=== PATIENT | male | born 1965 | race Caucasian/White ===

== ENCOUNTER 2020-09-05 09:52 | Emergency (ER) | payer BC, SELFPAY ==
[2020-09-05 09:55] VITALS: BP 145/98; PULSE 84; RESP 18; TEMP 36.9; O2SAT 96; BMI 30.7
--- NOTE | 2020-09-05 10:11 | HMH.EDUTC ---
[facility] [place]ression: Foreign body of right eye Qualifiers: Encounter type: initial encounter Qualified Code(s): T15.91XA - Foreign body on external eye, part unspecified, right eye, initial encounter Disposition: Home, Self-Care Condition on Discharge: Good Instructions: DI for Foreign Body in the Eye Additional Instructions: Make sure to go to Dr Escobar office at 1145 for further evaluation and examination and removal of Foreign body Further instructions per Dr Escobar Return if needed Straight to ER if any life threatening symptoms Referrals: Fili Cerda MD [Primary Care Provider] - As needed Dr Escobar [Other] - 09/05/20 11:45 am Time of Disposition: 10:40 Medical Decision Making - [place] Inquiry Pt receiving controlled substance: No [place] was queried for this patient: No Vital Signs: 09/05/20 09:55 09/05/20 10:46 Temperature 98.5 F 98.5 F Temperature Source Oral Pulse Rate 84 Pulse Rate [Right Brachial] 84 Respiratory Rate 18 18 Blood Pressure 145/98 H Blood Pressure [Right Arm] 145/98 H Blood Pressure Mean [Right Arm] 113 Blood Pressure Source [Right Arm] Automatic Cuff Blood Pressure Position [Right Arm] Sitting 02 Sat by Pulse Oximetry 96 Oxygen Delivery Method Room Air Orders (Tests/Meds): ED MEDICATIONS Discontinued Medications Generic Name Dose Route Start Last Admin Trade Name Adriánq PRN Reason Stop Dose Admin Erythromycin 1 gm 09/05/20 10:38 09/05/20 10:44 Erythromycin Base 1 Gm Oint...G. OP 09/05/20 10:39 1 gm ONCE ONE Administration Eye Irrigation Solution 120 ml 09/05/20 10:38 09/05/20 10:44 Eye Wash Irrigation Soln 118ml Bottle OP 09/05/20 10:39 1 applicatio ONCE ONE Administration Fluorescein Sodium 1 mg 09/05/20 10:38 09/05/20 10:44 Fluorescein Sodium 1mg Strip OP 09/05/20 10:39 1 mg ONCE ONE Administration Tetracaine HCl 0 ml 09/05/20 10:38 09/05/20 10:44 Tetracaine 0.5% Opth Kathryn 15ml OP 09/05/20 10:39 2 drops ONCE ONE Administration - Physician Consults Physician Consulted: Dr Escobar Time: 10:37 Reason -: Opthalmology Eval/Care Comment/Response: Spoke with Dr Escobar after seeing FB in right eye and he advised to have patient be at his office at 1145 for further examination and removal Patient agreed to go to office Medical Decision Narrative: Eye exam completed and patient appears to have FB still in eye, called and spoke with Dr Escobar and he advised to have the patient come to his clinic at 1145am and he would perform exam and removed object from eye in the clinic Patient agreed with treatment plan and will go to the office for further treatment and evaluation [facility] [place] General Stated complaint: eye redness,photosensitive Time Seen by Provider: 09/05/20 10:11 Mode of Arrival: Ambulatory Source of Information: Patient Limitations: No Limitations Description of Symptoms (Recalled from Triage Doc. by RN): PATIENT C/O POSSIBLE FOREIGN BODY IN RIGHT EYE SINCE YESTERDAY. STATES HE WAS GRINDING METAL TO MAKE A KNIFE YESTERDAY AND FELT SOMETHING HIT HIS EYE, BUT THOUGHT IT LEFT AFTER HE BLINKED. 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
[2020-09-05 10:46] VITALS: BP 145/98; PULSE 84; RESP 18; TEMP 36.9; O2SAT 96
== END 2020-09-05 10:48 | disposition home or self-care (01) ==
PROVIDERS: Emergency Provider Nurse Practitioner; PCP Emergency Medicine
DX: T15.91XA Foreign body on external eye, part unspecified, right eye, initial encounter (principal); F17.210 Nicotine dependence, cigarettes, uncomplicated; W45.8XXA Other foreign body or object entering through skin, initial encounter; Y92.018 Other place in single-family (private) house as the place of occurrence of the external cause
CPT/HCPCS: 99202; G0463

== ENCOUNTER 2020-10-28 16:13 | Emergency (ER) | payer BC, SELFPAY ==
[2020-10-28 16:17] VITALS: BP 155/69; PULSE 66; RESP 20; TEMP 36.7; O2SAT 98; BMI 32.4
--- NOTE | 2020-10-28 16:35 | CT_ITS ---
PROCEDURE INFORMATION: Exam: CT Abdomen And Pelvis Without Contrast Exam date and time: 10/28/2020 4:35 PM Age: 55 years old Clinical indication: Abdominal pain; Flank; Right; Prior surgery; Additional info: R/O stone TECHNIQUE: Imaging protocol: Computed tomography of the abdomen and pelvis without contrast. Radiation optimization: All CT scans at this facility use at least one of these dose optimization techniques: automated exposure control; mA and/or kV adjustment per patient size (includes targeted exams where dose is matched to clinical indication); or iterative reconstruction. COMPARISON: No relevant prior studies available. FINDINGS: Lungs: Atelectatic changes noted within the lung bases. Liver: Normal. No mass. Gallbladder and bile ducts: Normal. No calcified stones. No ductal dilation. Pancreas: Normal. No ductal dilation. Spleen: Normal. No splenomegaly. Adrenal glands: Normal. No mass. Kidneys and ureters: 4 mm calcification is present at the right ureterovesicular junction with moderate obstructive uropathy on the right. Several other calcifications are present within the right kidney measuring up to 3 mm. Peripelvic renal cysts are noted on the left without obstructive uropathy. Stomach and bowel: Unremarkable. No obstruction. No mucosal thickening. Appendix: No evidence of appendicitis. Intraperitoneal space: Normal. No significant fluid collection. Vasculature: The vasculature demonstrates diffuse mild atherosclerotic calcification. Lymph nodes: Unremarkable. No enlarged lymph nodes. Urinary bladder: There is mild bladder wall thickening consistent with incomplete distension, chronic outflow obstruction, or cystitis. Reproductive: The prostate demonstrates mild nonspecific enlargement. The seminal vesicles are normal. The prostate gland demonstrates nonspecific parenchymal calcifications. Bones/joints: Postoperative changes noted L5-S1. The lumbar spine demonstrates mild degenerative changes at multiple levels. Soft tissues: Right-sided fat filled inguinal hernia. There is a fat-containing umbilical hernia. IMPRESSION: 1. 4 mm calcification is present at the right ureterovesicular junction with moderate obstructive uropathy on the right. 2. Several other calcifications are present within the right kidney measuring up to 3 mm. 3. Peripelvic renal cysts are noted on the left without obstructive uropathy. 4. There is mild bladder wall thickening consistent with incomplete distension, chronic outflow obstruction, or cystitis. 5. Right-sided fat filled inguinal hernia. COMMENTS: Consistent with the [employer]'s Incidental Findings Committee white paper (J Am Nelia Radiol 2018): Any incidental renal lesion less than 1 cm or classified as too small to characterize, or any incidental cystic renal lesion characterized as simple-appearing, is likely benign. No follow-up imaging is recommended for these lesions per consensus recommendations based on imaging criteria.
[2020-10-28 16:46] LABS: Chloride 106 mmol/L (98-107); Sodium 139 mmol/L (136-145)
[2020-10-28 16:47] LABS: Potassium 3.9 mmoL/L (3.5-5.1)
[2020-10-28 16:48] LABS: Basophils # 0.1 K/mm3 (0-0.2); Basophils % 0.8 % (0.1-2.0); Eosinophils # 0.2 K/mm3 (0.0-0.4); Eosinophils % 1.4 % (0.1-12.0); Hematocrit 39.8 % (42.0-52.0); Hemoglobin 14.3 g/dL (14.1-18.0); Lymphocytes # 4.4 K/mm3 (0.7-4.5); Lymphocytes % 34.5 % (10-50); Mean Corpuscular HGB Conc 35.8 g/dL (31.8-35.4); Mean Corpuscular Hemoglobin 31.5 pg (27.0-31.2); Mean Corpuscular Volume 88.1 fl (80-94); Mean Platelet Volume 8.4 fl (7.4-10.4); Monocytes # 0.5 K/mm3 (0.1-1.0); Monocytes % 3.8 % (1.7-9.3); Neutrophils # 7.5 K/mm3 (1.8-7.8); Neutrophils % 59.6 % (37.0-80.0); Platelet Count 263 K/mm3 (142-424); Red Blood Count 4.52 M/mm3 (4.60-6.20); Red Cell Distribution Width 13.7 % (11.5-17.5); White Blood Count 12.6 K/mm3 (4.8-10.8)
[2020-10-28 16:49] LABS: Alanine Aminotransferase 23 U/L (12-78); Albumin Level 4.6 g/dl (3.5-5.0); Albumin/Globulin Ratio 1.5 (1.1-1.8); Alkaline Phosphatase 73 U/L (38-126); Anion Gap 10.9 mEq/L (5-15); Aspartate Amino Transferase 29 U/L (17-59); Bilirubin,Total 0.8 mg/dl (0.2-1.3); Blood Urea Nitrogen 16 mg/dl (9-20); Carbon Dioxide 26 mmol/L (22.0-30.0); Creatinine Clearance Estimated 134 mL/min (50-200); Estimated Glomerular Filt Rate 88 ml/min (>60); GFR (African American) 106 ML/MIN (>60); Total Protein,Serum 7.6 g/dl (6.3-8.2)
[2020-10-28 16:50] LABS: Calcium 9.3 mg/dl (8.4-10.2); Glucose 139 mg/dl (74-100)
[2020-10-28 16:50] LABS: Microscopic, Urine URINE MICROSCOPIC (MICROSCOPIC)
[2020-10-28 16:51] LABS: Appearance,Urine CLEAR (Clear); Bilirubin,Urine Negative (Negative); Blood, Urine Negative (Negative); Color,Urine YELLOW (Yellow); Glucose,Urine (UA) Negative (Negative); Ketones,Urine Negative (Negative); Leukocyte Esterase,Urine Negative (Negative); Nitrate,Urine Negative (Negative); PH,Urine 5.5 (5.0-8.5); Protein,Urine Negative (Negative); Specific Gravity, Urine >= 1.030 (1.005-1.030); Urobilinogen,Urine 0.2 EU/dl (0.2)
[2020-10-28 17:08] LABS: Bacteria,Urine Trace /lpf
[2020-10-28 17:25] VITALS: BP 140/77; PULSE 63; RESP 16
--- NOTE | 2020-10-28 17:44 | HMH.EDGENADL ---
ED Disposition Clinical Impression: Ureterolithiasis Disposition: Home, Self-Care Condition on Discharge: Good Additional Instructions: Meds as directed. Follow-up with PCP/Dr. Guillermo in the next 2 to 3 days. Return to emergency department for fever, worsening pain, nausea with vomiting. Prescriptions: Ketorolac Tromethamine [Toradol 10mg tablet] 10 mg PO Q6HP PRN #16 tab MDD 40mg/day PRN Reason: Moderate Pain Transmission Status: Pending to [facility] Tamsulosin HCl [Flomax 0.4mg capsule] 0.4 mg PO HS #30 cap Transmission Status: Pending to [facility] Hydrocodone/Acetaminophen [Hydrocodone-Acetamin 5-325 mg] 1 tab PO TID PRN #12 tab PRN Reason: Severe Pain Transmission Status: Sent to [facility] Ondansetron [Zofran 4mg ODT] 4 mg PO TIDP PRN #10 tab PRN Reason: Nausea Transmission Status: Pending to [facility] Referrals: Fili Cerda MD [Primary Care Provider] - 3 days Matthew Guillermo MD [Staff Physician] - (call for appt) Time of Disposition: 17:47 - Critical Care Critical Care Time: No Attestation: On 10/28/20, the high probability of a clinically significant, sudden or life threatening deterioration of the following system(s) required my full and direct attention, intervention and personal management. The time I documented below is in addition to time spent performing reported procedures but includes the following listed in this critical care notation. Medical Decision Making - Medical Records Medical records reviewed: Yes: I reviewed the patient's medical records. - [place] Inquiry Pt receiving controlled substance: No Vital Signs: 10/28/20 16:17 Temperature 98.1 F Temperature Source Oral Pulse Rate [Radial] 66 Respiratory Rate 20 Blood Pressure [Right Arm] 155/69 H Blood Pressure Mean [Right Arm] 97 Blood Pressure Position [Right Arm] Sitting 02 Sat by Pulse Oximetry 98 Oxygen Delivery Method Room Air - Lab Data Lab results reviewed: Yes: I reviewed the patient's lab results. Lab Results 10/28/20 16:30: WBC 12.6 H, RBC 4.52 L, Hgb 14.3, Hct 39.8 L, MCV 88.1, MCH 31.5 H, MCHC 35.8 H, RDW 13.7, Plt Count 263, MPV 8.4, Neut % (Auto) 59.6, Lymph % (Auto) 34.5, [place] % (Auto) 3.8, Eos % (Auto) 1.4, Baso % (Auto) 0.8, Neut # (Auto) 7.5, Lymph # (Auto) 4.4, [place] # (Auto) 0.5, Eos # (Auto) 0.2, Baso # (Auto) 0.1 10/28/20 16:30: Sodium 139, Potassium 3.9, Chloride 106, Carbon Dioxide 26, Anion Gap 10.9, BUN 16, Creatinine 0.90, Estimated Creat Clear 134, Estimated GFR 88, Est GFR ( Amer) 106, Glucose 139 H, Calcium 9.3, Total Bilirubin 0.8, AST 29, ALT 23, Alkaline Phosphatase 73, Total Protein 7.6, Albumin 4.6, Globulin 3.0, Albumin/Globulin Ratio 1.5 10/28/20 16:40: Urine Color Yellow, Urine Appearance Clear, Urine pH 5.5, Ur Specific [place] >= 1.030, Urine Protein Negative, Urine Glucose (UA) Negative, Urine Ketones Negative, Urine Blood Negative, Urine Nitrate Negative, Urine Bilirubin Negative, Urine Urobilinogen 0.2, Ur Leukocyte Esterase Negative, Urine Bacteria Trace Result diagrams: 10/28/20 16:30 10/28/20 16:30 Orders (Tests/Meds): ED MEDICATIONS Generic Name Dose Route Start Last Admin Trade Name Freq PRN Reason Stop Dose Admin Sodium Chloride 1,000 mls @ 999 mls/hr 10/28/20 16:45 10/28/20 16:30 Sod Chlor 0.9% 1000ml Bag IV 10/28/20 17:45 999 mls/hr .Q1H1M HOWARD Administration Discontinued Medications Generic Name Dose Route Start Last Admin Trade Name Freq PRN Reason Stop Dose Admin Ketorolac Tromethamine 30 mg 10/28/20 16:36 10/28/20 16:30 Ketorolac 30mg/Ml Vial IV 10/28/20 16:37 30 mg ONCE ONE Administration Ondansetron HCl 4 mg 10/28/20 16:35 10/28/20 16:30 Ondansetron 4mg/2ml Vial IV 10/28/20 16:36 4 mg ONCE ONE Administration - CT Data CT Scan: Abdomen, Pelvis Time Received: 17:30 Preliminary Findings: Abnormal Findings Narrative: 4mm stone at the right
[2020-10-28 18:01] VITALS: BP 140/79; PULSE 62; RESP 16
[2020-10-28 18:17] VITALS: BP 140/79; PULSE 62; RESP 16; TEMP 36.7; O2SAT 98
== END 2020-10-28 18:17 | disposition home or self-care (01) ==
PROVIDERS: Emergency Provider Family Medicine; PCP Emergency Medicine
DX: N20.1 Calculus of ureter (principal); F17.210 Nicotine dependence, cigarettes, uncomplicated
CPT/HCPCS: 74176; 80053; 81001; 85025; 96365; 96375; 99283; J2405

== ENCOUNTER 2021-07-23 13:27 | Emergency (ER) | payer BC, SELFPAY ==
[2021-07-23 13:35] VITALS: BP 126/83; PULSE 78; RESP 19; TEMP 37.1; O2SAT 98; BMI 32.3
[2021-07-23 13:45] LABS: Apearance,Urine Clear (Clear); Bilirubin,Urine Negative (Negative); Blood, Urine Negative (Negative); Color,Urine Yellow (Yellow); Glucose,Urine (UA) Negative (Negative); Ketones,Urine Negative (Negative); Protein,Urine Negative (Negative); Specific Gravity, Urine 1.015 (1.005-1.030); UTC Leukocyte Esterase,Urine Negative (Negative); UTC Nitrate,Urine Negative (Negative); Urobilinogen,Urine 0.2 EU/dl (0.2)
--- NOTE | 2021-07-23 13:57 | HMH.EDUTC ---
[facility] [place] Impression: Urinary problem in male Disposition: Home, Self-Care Condition on Discharge: Good Instructions: Phenazopyridine, Tamsulosin Additional Instructions: Make sure that you are drinking plenty of fluids Medication as prescribed Follow in the next 2-3 days with Family Doctor or Dr Guillermo Straight to ER if any worsening of symptoms, fever, chills or body aches Prescriptions: Tamsulosin HCl [Flomax 0.4mg capsule] 0.4 mg PO HS #30 cap Transmission Status: Received by [facility] Phenazopyridine HCl [Pyridium 200mg Tablet] 200 pow PO TID #6 tab Transmission Status: Received by [facility] Referrals: Fili Cerda MD [Primary Care Provider] - As needed Matthew Guillermo MD [Staff Physician] - Time of Disposition: 14:11 Medical Decision Making - [place] Inquiry Pt receiving controlled substance: No [place] was queried for this patient: No Vital Signs: 07/23/21 13:35 07/23/21 14:05 Temperature 98.7 F 98.7 F Temperature Source Oral Pulse Rate 78 Pulse Rate [Right Brachial] 78 Respiratory Rate 19 19 Blood Pressure 126/83 Blood Pressure [Right Arm] 126/83 Blood Pressure Mean [Right Arm] 97 Blood Pressure Source [Right Arm] Automatic Cuff Blood Pressure Position [Right Arm] Sitting 02 Sat by Pulse Oximetry 98 Oxygen Delivery Method Room Air - Lab Data Lab results reviewed: Yes: I reviewed the patient's lab results. Lab Results 07/23/21 13:31: Urine Color Yellow, Urine Appearance Clear, Urine pH 6.0, Ur Specific [place] 1.015, Urine Protein Negative, Urine Glucose (UA) Negative, Urine Ketones Negative, Urine Blood Negative, Urine Nitrate Negative, Urine Bilirubin Negative, Urine Urobilinogen 0.2, Ur Leukocyte Esterase Negative Orders (Tests/Meds): ORDERS Category Date Time Status Urine Culture Stat Micro 07/23/21 14:01 Ordered Medical Decision Narrative: Discussed with patient about transfer to the ED for further treatment and evaluation and CT to rule out kidney stones due to history Patient declined transfer States that he is not having any flank pain at this time just some burning and irritation with urination and did not want to go to ED at this time Discussed with patient that could prescribed more Flomax since he is out and pyridium for irritation since patient did take flomax for the last several days and reports feeling of irritation like he had when he passed last kidney stone and for immediate return to the ED if any difficulty or failure to produce urine or worsening of symptoms and patient to follow up with PCP or Dr Guillermo in the next couple of days and patient agreed [facility] [place] - General Stated complaint: painful urination Time Seen by Provider: 07/23/21 13:45 Mode of Arrival: Ambulatory Source of Information: Patient Limitations: No Limitations Description of Symptoms (Recalled from Triage Doc. by RN): PATIENT C/O PRESSURE IN BLADDER, URINARY URGENCY, AND LOWER RIGHT BACK PAIN X 1 WEEK HEENT Symptoms (Recalled from RN notes): No Resp Symptoms (Recalled from RN notes): No Skin Symptoms (Recalled from RN notes): No MS Symptoms (Recalled from RN notes): No Functional Status (Recalled from RN notes): wnl - History of Present Illness Provider Complaint: Patient states that about a week ago he had some lower back pain but he has been laying block and thinks that may have been the cause of his lower back pain States that after that he had a little burning and feeling of urgency and frequency States that he has a history of kidney stones and has been able to pass them with flomax so he had some and took it States that he hasnt passed anything that he is aware of but may have and no longer having low back pain but still having the feeling of urgency and frequency at times with buring States that he is also out of flomax States that he thought he may have a UTI so he came in to get checked Denies fever, chills, or body aches, denies
[2021-07-23 14:05] VITALS: BP 126/83; PULSE 78; RESP 19; TEMP 37.1; O2SAT 98
== END 2021-07-23 14:16 | disposition home or self-care (01) ==
PROVIDERS: Emergency Provider Nurse Practitioner; PCP Emergency Medicine
DX: R30.0 Dysuria (principal); M54.50 Low back pain, unspecified; Z79.899 Other long term (current) drug therapy
CPT/HCPCS: 81003; 87086; 99213; G0463

== ENCOUNTER → 2021-11-15 19:56 | Outpatient (CLI) | payer BC, SELFPAY ==
[2021-11-15 21:01] LABS: Basophils # 0.3 K/mm3 (0-0.2); Basophils % 1.6 % (0.1-2.0); Eosinophils # 0.2 K/mm3 (0.0-0.4); Eosinophils % 1.2 % (0.1-12.0); Hematocrit 43.6 % (42.0-52.0); Hemoglobin 14.5 g/dL (14.1-18.0); Lymphocytes # 1.8 K/mm3 (0.7-4.5); Lymphocytes % 10.6 % (10-50); Mean Corpuscular HGB Conc 33.3 g/dL (31.8-35.4); Mean Corpuscular Hemoglobin 31.3 pg (27.0-31.2); Mean Corpuscular Volume 94.1 fl (80-94); Mean Platelet Volume 8.7 fl (7.4-10.4); Monocytes # 0.9 K/mm3 (0.1-1.0); Monocytes % 5.2 % (1.7-9.3); Neutrophils # 13.7 K/mm3 (1.8-7.8); Neutrophils % 81.5 % (37.0-80.0); Platelet Count 327 K/mm3 (142-424); Red Blood Count 4.63 M/mm3 (4.60-6.20); Red Cell Distribution Width 13.5 % (11.5-17.5); White Blood Count 16.8 K/mm3 (4.8-10.8)
[2021-11-15 21:03] LABS: MANUAL DIFFERENTIAL MANUAL DIFFERENTIAL (MANUAL DIFF)
[2021-11-15 21:34] LABS: Alanine Aminotransferase 25 U/L (12-78); Albumin Level 4.1 g/dl (3.5-5.0); Albumin/Globulin Ratio 1.3 (1.1-1.8); Alkaline Phosphatase 92 U/L (38-126); Amylase 52 U/L (30-110); Aspartate Amino Transferase 29 U/L (17-59); Bilirubin,Total 0.8 mg/dl (0.2-1.3); Blood Urea Nitrogen 13 mg/dl (9-20); Calcium 9.7 mg/dl (8.4-10.2); Carbon Dioxide 24 mmol/L (22.0-30.0); Chloride 101 mmol/L (98-107); Estimated Glomerular Filt Rate 100 ml/min (>60); GFR (African American) 121 ML/MIN (>60); Globulin 3.1 g/dL (1.3-3.2); Glucose 165 mg/dl (74-100); Lipase 63 U/L (23-300); Sodium 138 mmol/L (136-145); Total Protein,Serum 7.2 g/dl (6.3-8.2)
[2021-11-15 21:35] LABS: Lymphocytes % 19 % (10-50); Microcytosis 1+; Monocytes % 9 % (2-9); Neutrophils % 72 % (42-76); Platelet Estimate Normal; Total Cells Counted 100
[2021-11-16 10:11] LABS: Microscopic, Urine URINE MICROSCOPIC (MICROSCOPIC)
[2021-11-16 10:48] LABS: Appearance,Urine SL CLOUDY (Clear); Bilirubin,Urine Negative (Negative); Blood, Urine Negative (Negative); Color,Urine YELLOW (Yellow); Glucose,Urine (UA) Negative (Negative); Ketones,Urine Negative (Negative); Leukocyte Esterase,Urine Negative (Negative); Nitrate,Urine Negative (Negative); Protein,Urine Negative (Negative); Specific Gravity, Urine 1.025 (1.005-1.030); Urobilinogen,Urine 0.2 EU/dl (0.2)
[2021-11-16 11:01] LABS: Bacteria,Urine Trace /lpf; Calcium Oxalate Crystals,Urine 2+ /lpf; Squamous Epithelial Cell,Urine Occasional #/hpf (0-5)
[2021-11-16 11:02] LABS: Mucus,Urine Trace /lpf
== END ==
PROVIDERS: PCP Emergency Medicine; Visit Provider Emergency Medicine
DX: Z20.822 Contact with and (suspected) exposure to COVID-19 (principal); K52.9 Noninfective gastroenteritis and colitis, unspecified
CPT/HCPCS: 36415; 80053; 81001; 82150; 83690; 85007; 85025; 87086; C9803; U0003; U0005

== ENCOUNTER 2022-07-09 18:01 | Emergency (ER) | payer BC, SELFPAY ==
[2022-07-09 18:03] VITALS: BP 129/90; PULSE 99; RESP 16; TEMP 36.8; O2SAT 97; BMI 33.0
[2022-07-09 18:08] VITALS: BP 129/90; PULSE 93; O2SAT 98
[2022-07-09 18:47] VITALS: BP 129/90; PULSE 93; RESP 16; TEMP 36.8; O2SAT 98
--- NOTE | 2022-07-09 18:50 | HMH.EDGENADL ---
Discharge Plan Disposition Patient Disposition: Home, Self-Care Condition: Fair Prescriptions Prescriptions: No Action hydrocodone-acetaminophen 1 EACH tablet 1 tab PO TID PRN (Reason: Severe Pain) Qty: 12 0RF ketorolac 10 MG tablet 10 mg PO Q6HP MDD 40mg/day PRN (Reason: Moderate Pain) Qty: 16 0RF Rx Instructions: Therapy initiated with IV/IM dose tamsulosin 0.4 MG capsule 0.4 mg PO HS Qty: 30 0RF ondansetron 4 MG tablet,disintegrating 4 mg PO TIDP PRN (Reason: Nausea) Qty: 10 0RF multivitamin 1 EACH tablet 1 each PO DAILY phenazopyridine 200 MG tablet 200 pow PO TID Qty: 6 0RF tamsulosin 0.4 MG capsule 0.4 mg PO HS Qty: 30 0RF Referrals Follow up/Referrals: Fili Cerda MD [Primary Care Provider] - See instructions Clinical Impressions Clinical Impression: Abrasion, corneal Instructions Patient Instructions: DI for Corneal Abrasion Discharge ED Provider: Vineet Beatty General Adult HPI General Chief complaint: Eye Problems Stated complaint: AO 07/09 Left eye (stick hit it) Time Seen by Provider: 07/09/22 18:15 Mode of Arrival: Ambulatory Source of Information: Patient Limitations: No Limitations Description of Symptoms (Recalled from ER Triage Doc. by RN): pt was turkey hunting today. pt moved a branch and when he did a second branch hit him in the left eye. pt has blood noted in eye. pt reports no visual changes, no pain at site of injury. History of Present Illness HPI narrative: Patient is a 57-year-old male who presents with concern for left eye injury. He reports that he was hunting earlier today when he moved to branch out of the way but then another branch hit him in the left eye. He noted some bleeding on his eye and his made him come in for evaluation. He says it is not painful. No pain with extraocular movement. Denies any visual changes. Related Data Home Medications Medication Instructions Recorded Confirmed multivitamin 1 each PO DAILY HEALTH MAINTENANCE 02/18/19 02/18/19 Previous Rx's Medication Instructions Recorded hydrocodone 5 mg-acetaminophen 325 1 tab PO TID PRN Severe Pain #12 10/28/20 mg tablet tabs ketorolac 10 mg tablet 10 mg PO Q6HP PRN Moderate Pain 10/28/20 #16 tabs ondansetron 4 mg disintegrating 4 mg PO TIDP PRN Nausea #10 tabs 10/28/20 tablet tamsulosin 0.4 mg capsule 0.4 mg PO HS #30 caps 10/28/20 phenazopyridine 200 mg tablet 200 pow PO TID #6 tabs 07/23/21 tamsulosin 0.4 mg capsule 0.4 mg PO HS #30 caps 07/23/21 Allergies Allergy/AdvReac Type Severity Reaction Status Date / Time No Known Allergies Allergy Verified 07/09/22 18:18 [facility] Disclaimer: The information contained in this section may have been updated after the patient was seen, as this information can be updated by other users. Social History Smoking Status: Never smoker alcohol intake: never substance use type: denies use current occupational status: employed Travel in the last 8 weeks: None household members: family housing: house ROS Obtained: Yes All systems reviewed & no additional complaints except as documented Physical Exam General General appearance: alert and in no apparent distress Head Head exam: atraumatic, normocephalic and normal inspection Eye Eye exam: Present normal appearance, PERRL and other (Left-sided lateral subconjunctival hemorrhage, fluorescein stain revealed small corneal abrasion) ENT ENT exam: Present normal exam, mucous membranes moist and normal external ear exam Neck Neck exam: Present normal inspection and trachea midline Chest Chest inspection: Present normal inspection and symmetric chest wall rise Respiratory Respiratory exam: Present normal lung sounds bilaterally; Absent respiratory distress Cardiovascular Cardiovascular exam: Present regular rate and normal rhythm Abdominal Exam Abdominal exam: Present soft; Absent distention, tenderness or guarding Ext
== END 2022-07-09 18:50 | disposition home or self-care (01) ==
PROVIDERS: Emergency Provider Student in an Organized Health Care Education/Training Program; PCP Emergency Medicine
DX: S05.02XA Injury of conjunctiva and corneal abrasion without foreign body, left eye, initial encounter (principal); W22.8XXA Striking against or struck by other objects, initial encounter
CPT/HCPCS: 99283

== ENCOUNTER 2022-11-01 16:14 | Emergency (ER) | payer BC, SELFPAY ==
[2022-11-01] VITALS (7 sets, daily range): BP systolic 114–175; BP diastolic 71–106; PULSE 74–92; RESP 10–19; TEMP 36.8–36.9; O2SAT 96–99; BMI 34.4
--- NOTE | 2022-11-01 16:14 | ECG_ITS ---
APPROVED REPORT Exam: Resting ECG HR:73 bpm ECG Measurements Heart Rate 73 AXES AK 161 P 62 QRSd 94 QRS 45 QT 370 T 79 QTc 396 Conclusion SINUS RHYTHM MINIMAL ST DEPRESSION [0.025+ mV ST DEPRESSION] BORDERLINE ECG UNCONFIRMED REPORT Electronically signed by : Alexys Burgos MD 11/02/2022 13:52:24
--- NOTE | 2022-11-01 16:22 | XR_ITS ---
PROCEDURE INFORMATION: Exam: XR Chest Exam date and time: 11/01/2022 4:51 PM Age: 57 years old Clinical indication: Angina; Additional info: Chest tightness TECHNIQUE: Imaging protocol: Radiologic exam of the chest. Views: 1 view. COMPARISON: CT ABDOMEN PELVIS WO CON 10/28/2020 5:01 PM FINDINGS: Lungs: Unremarkable. No consolidation. Pleural spaces: Unremarkable. No pleural effusion. No pneumothorax. Heart/Mediastinum: Unremarkable. No cardiomegaly. Bones/joints: Unremarkable. IMPRESSION: No acute findings.
--- NOTE | 2022-11-01 16:23 | HMH.EDGENADL ---
Discharge Plan Disposition Patient Disposition: Home, Self-Care Condition: Good Chief Complaint: Chest Pain Prescriptions Prescriptions: No Action hydrocodone-acetaminophen 1 EACH tablet 1 tab PO TID PRN (Reason: Severe Pain) Qty: 12 0RF ketorolac 10 MG tablet 10 mg PO Q6HP MDD 40mg/day PRN (Reason: Moderate Pain) Qty: 16 0RF Rx Instructions: Therapy initiated with IV/IM dose tamsulosin 0.4 MG capsule 0.4 mg PO HS Qty: 30 0RF ondansetron 4 MG tablet,disintegrating 4 mg PO TIDP PRN (Reason: Nausea) Qty: 10 0RF multivitamin 1 EACH tablet 1 each PO DAILY phenazopyridine 200 MG tablet 200 pow PO TID Qty: 6 0RF tamsulosin 0.4 MG capsule 0.4 mg PO HS Qty: 30 0RF Referrals Follow up/Referrals: Fili Cerda MD [Primary Care Provider] - See instructions Ganga Davis MD [Staff Physician] - See instructions Activity Restrictions/Add. Instructions Additional Instructions/Restrictions: At this time is felt you are safe to be discharged home. If new or worsening symptoms please not hesitate to return to the emergency department. Please call and schedule follow-up with cardiology as you are able. Please follow-up with your family doctor within 1 week. Clinical Impressions Clinical Impression: Chest pain Discharge ED Provider: Romulo Rush General Adult HPI General Chief complaint: Chest Pain Stated complaint: CP Time Seen by Provider: 11/01/22 16:22 History of Present Illness HPI narrative: Patient is a 57-year-old male, previous smoker who presents emergency department for evaluation of chest tightness. Onset was acute, occurring approximately 48 hours ago upon awakening. Intermittently worse with eating. Substernal tightness . Patient denies true pain, cough, fevers, shortness of breath, other acute complaints at this time. Patient has no diagnosed comorbidities for which he takes medications at home for. No allergies. Related Data Home Medications Medication Instructions Recorded Confirmed multivitamin 1 each PO DAILY HEALTH MAINTENANCE 02/18/19 02/18/19 Previous Rx's Medication Instructions Recorded hydrocodone 5 mg-acetaminophen 325 1 tab PO TID PRN Severe Pain #12 10/28/20 mg tablet tabs ketorolac 10 mg tablet 10 mg PO Q6HP PRN Moderate Pain 10/28/20 #16 tabs ondansetron 4 mg disintegrating 4 mg PO TIDP PRN Nausea #10 tabs 10/28/20 tablet tamsulosin 0.4 mg capsule 0.4 mg PO HS #30 caps 10/28/20 phenazopyridine 200 mg tablet 200 pow PO TID #6 tabs 07/23/21 tamsulosin 0.4 mg capsule 0.4 mg PO HS #30 caps 07/23/21 Allergies Allergy/AdvReac Type Severity Reaction Status Date / Time No Known Allergies Allergy Verified 07/09/22 18:18 [facility] Disclaimer: The information contained in this section may have been updated after the patient was seen, as this information can be updated by other users. Social History Smoking Status: Former smoker alcohol intake: never substance use type: denies use current occupational status: employed Travel in the last 8 weeks: None household members: family housing: house ROS Obtained: Yes Systems reviewed as appropriate & no additional complaints except as documented Physical Exam General General appearance: alert and in no apparent distress Head Head exam: atraumatic and normocephalic Eye Eye exam: Present PERRL and EOMI ENT ENT exam: Present mucous membranes moist Neck Neck exam: Present normal inspection Chest Chest inspection: Present normal inspection and symmetric chest wall rise Respiratory Respiratory exam: Present normal lung sounds bilaterally; Absent respiratory distress Cardiovascular Cardiovascular exam: Present regular rate, normal rhythm and other (No pitting edema BLE) Abdominal Exam Abdominal exam: Present soft; Absent tenderness Extremities Exam Extremities exam: Present normal inspection Neurological Exam Neurological exam: Present alert Psychia
[2022-11-01 16:35] LABS: Basophils # 0.1 K/mm3 (0-0.2); Basophils % 0.8 % (0.1-2.0); Eosinophils # 0.2 K/mm3 (0.0-0.4); Eosinophils % 2.1 % (0.1-12.0); Hematocrit 43.8 % (42.0-52.0); Hemoglobin 14.6 g/dL (14.1-18.0); Lymphocytes # 4.4 K/mm3 (0.7-4.5); Lymphocytes % 39.4 % (10-50); Mean Corpuscular HGB Conc 33.4 g/dL (31.8-35.4); Mean Corpuscular Hemoglobin 30.4 pg (27.0-31.2); Mean Platelet Volume 8.6 fl (7.4-10.4); Monocytes # 0.6 K/mm3 (0.1-1.0); Monocytes % 5.1 % (1.7-9.3); Neutrophils # 5.8 K/mm3 (1.8-7.8); Neutrophils % 52.6 % (37.0-80.0); Platelet Count 282 K/mm3 (142-424); Red Blood Count 4.81 M/mm3 (4.60-6.20); Red Cell Distribution Width 13.4 % (11.5-17.5); White Blood Count 11.1 K/mm3 (4.8-10.8)
[2022-11-01 16:52] LABS: Alanine Aminotransferase 35 U/L (12-78); Albumin Level 4.2 g/dl (3.5-5.0); Albumin/Globulin Ratio 1.3 (1.1-1.8); Alkaline Phosphatase 72 U/L (38-126); Anion Gap 12.9 mEq/L (5-15); Aspartate Amino Transferase 34 U/L (17-59); Bilirubin,Total 0.8 mg/dl (0.2-1.3); Blood Urea Nitrogen 18 mg/dl (9-20); Calcium 8.9 mg/dl (8.4-10.2); Carbon Dioxide 27 mmol/L (22.0-30.0); Chloride 106 mmol/L (98-107); Creatinine Clearance Estimated 125 mL/min (50-200); Estimated Glomerular Filt Rate 77 ml/min (>60); GFR (African American) 93 ML/MIN (>60); Globulin 3.2 g/dL (1.3-3.2); Glucose 113 mg/dl (74-100); Potassium 3.9 mmoL/L (3.5-5.1); Sodium 142 mmol/L (136-145); Total Protein,Serum 7.4 g/dl (6.3-8.2)
[2022-11-01 17:09] LABS: Troponin I < 0.01 ng/ml (0.00-0.034)
[2022-11-01 18:57] LABS: Troponin I < 0.01 ng/ml (0.00-0.034)
== END 2022-11-01 19:18 | disposition home or self-care (01) ==
PROVIDERS: Emergency Provider Emergency Medicine; PCP Emergency Medicine
DX: R07.9 Chest pain, unspecified (principal); Z87.891 Personal history of nicotine dependence
CPT/HCPCS: 71045; 80053; 84484; 85025; 93005; 99285

== ENCOUNTER 2023-03-20 14:40 | Emergency (ER) | payer BC, SELFPAY ==
--- NOTE | 2023-03-20 15:54 | EXP.UTC ---
Discharge Plan Disposition Patient Disposition: Home, Self-Care Condition: Good Prescriptions Prescriptions: New benzonatate [benzonatate] 100 mg capsule 100 mg PO TIDP PRN (Reason: Cough) Qty: 30 0RF ondansetron 4 mg Tablet,Disintegrating 4 mg PO Q8H PRN (Reason: Nausea) Qty: 12 0RF No Action hydrocodone-acetaminophen 1 EACH tablet 1 tab PO TID PRN (Reason: Severe Pain) Qty: 12 0RF ketorolac 10 MG tablet 10 mg PO Q6HP MDD 40mg/day PRN (Reason: Moderate Pain) Qty: 16 0RF Rx Instructions: Therapy initiated with IV/IM dose tamsulosin 0.4 MG capsule 0.4 mg PO HS Qty: 30 0RF ondansetron 4 MG tablet,disintegrating 4 mg PO TIDP PRN (Reason: Nausea) Qty: 10 0RF multivitamin 1 EACH tablet 1 each PO DAILY phenazopyridine 200 MG tablet 200 pow PO TID Qty: 6 0RF tamsulosin 0.4 MG capsule 0.4 mg PO HS Qty: 30 0RF Referrals Follow up/Referrals: Fili Cerda MD [Primary Care Provider] - See instructions Activity Restrictions/Add. Instructions Additional Instructions/Restrictions: Drink plenty of fluids. Take tylenol or ibuprofen for pain or fever. Take the medications as directed. Follow up with your regular doctor. GO TO THE ER FOR ANY WORSENING SYMPTOMS Clinical Impressions Clinical Impression: Acute viral syndrome, Exposure to 2019 novel coronavirus Instructions Patient Instructions: Coronavirus Disease 2019, Preventing the Spread of Coronavirus Discharge Instructions Discharge ED Provider: Caleb Salmeron [facility] General Stated complaint: covid exposure, h/a, chills, cough, lung pain Time Seen by Provider: 03/20/23 15:54 History of Present Illness Provider Complaint: He states that for the past 2 days he has had chills, malaise, dry cough, and body aches. He has been exposed to covid-19. Related Data Home Medications Medication Instructions Recorded Confirmed multivitamin 1 each PO DAILY HEALTH MAINTENANCE 02/18/19 02/18/19 Previous Rx's Medication Instructions Recorded hydrocodone 5 mg-acetaminophen 325 1 tab PO TID PRN Severe Pain #12 08/ mg tablet tabs ketorolac 10 mg tablet 10 mg PO Q6HP PRN Moderate Pain 10/28/20 #16 tabs ondansetron 4 mg disintegrating 4 mg PO TIDP PRN Nausea #10 tabs 10/28/20 tablet tamsulosin 0.4 mg capsule 0.4 mg PO HS #30 caps 10/28/20 phenazopyridine 200 mg tablet 200 pow PO TID #6 tabs 07/23/21 tamsulosin 0.4 mg capsule 0.4 mg PO HS #30 caps 07/23/21 benzonatate 100 mg capsule 100 mg PO TIDP PRN Cough #30 caps 03/20/23 ondansetron 4 mg disintegrating 4 mg PO Q8H PRN Nausea #12 tabs 03/20/23 tablet Allergies Allergy/AdvReac Type Severity Reaction Status Date / Time No Known Allergies Allergy Verified 07/09/22 18:18 [facility] Disclaimer: The information contained in this section may have been updated after the patient was seen, as this information can be updated by other users. Social History Smoking Status: Former smoker tobacco type: cigarettes packs per day: 1 alcohol intake: never substance use type: denies use current occupational status: employed Travel in the last 8 weeks: None household members: family housing: house ROS Obtained: Yes All systems reviewed & no additional complaints except as documented Constitutional Constitutional: Reports chills and Reports fever(s) Eyes Eyes: Denies eye discharge ENT Ears, Nose, Mouth, and Throat: Reports as per HPI Cardiovascular Cardiovascular: Denies chest pain Respiratory Respiratory: Denies chest congestion and Reports cough Gastrointestinal Gastrointestingal: Reports nausea; Denies abdominal pain, constipation, cramping, diarrhea or vomiting Musculoskeletal Musculoskeletal: Denies arthralgias Integumentary/Breasts Skin/Breast: Denies rash Neurologic Neurologic: Denies paresthesias Physical Exam General General appearance: alert and in no apparent distress Head Head exam: atraumatic, normocephalic and normal inspection Eye Eye exam: Present normal appearance, PERRL and EOMI ENT ENT exam: Present normal exam, normal oropharynx, mucous membranes moist, TM's normal bilaterally and normal external ear exam Neck Neck exam: Present normal inspection, full ROM and trachea midline; Absent meningismus or lymphadenopathy Chest Chest inspection: Present normal inspection and symmetric chest wall rise; Absent tenderness Respiratory Respiratory exam: Present normal lung sounds bilaterally; Absent respiratory distress Cardiovascular Cardiovascular exam: Present regular rate and normal rhythm; Absent JVD Abdominal Exam Abdominal exam: Present soft and normal bowel sounds; Absent distention, tenderness or guarding Extremities Exam Extremities exam: Present normal inspection, full ROM and normal capillary refill; Absent calf tenderness Back Exam Back exam: Present normal inspection; Absent tenderness Neurological Exam Neurological exam: Present alert and oriented X3 Psychiatric Psychiatric exam: Present normal affect and normal mood Skin Skin exam: Present warm, dry, intact and normal color Lymphatic Lymphatic Findings: no adenopathy Medical Decision Making Medical Records Medical records reviewed: No I reviewed the patient's medical records. [place] Inquiry Pt receiving controlled substance: No Lab Data Lab results reviewed: Yes I reviewed the patient's lab results. Orders (Tests/Meds): ORDERS Category Date Time Status Covid-19 Nasal PCR ([facility]) Routine Lab 03/20/23 15:54 Ordered
[2023-03-20 16:07] VITALS: BP 145/97; PULSE 106; RESP 18; TEMP 37.2; O2SAT 97; BMI 34.4
[2023-03-20 16:20] VITALS: BP 145/97; PULSE 106; RESP 18; TEMP 37.2; O2SAT 97
== END 2023-03-20 16:21 | disposition home or self-care (01) ==
PROVIDERS: Emergency Provider Nurse Practitioner Family; PCP Emergency Medicine
DX: U07.1 COVID-19 (principal); R51.9 Headache, unspecified; R07.1 Chest pain on breathing; R50.9 Fever, unspecified; R05.9 Cough, unspecified; R53.81 Other malaise; M79.18 Myalgia, other site; Z87.891 Personal history of nicotine dependence
CPT/HCPCS: 87635; 99212; 99214; G0463

== ENCOUNTER 2023-05-24 07:33 | Outpatient (CLI) | payer BC, SELFPAY ==
--- NOTE | 2023-05-24 07:40 | US_ITS ---
FINAL REPORT TECHNIQUE: Sonographic images of the right upper quadrant were obtained. CLINICAL HISTORY: ADENOMATOUS POLYP OF COLON,STEATOHEPATITIS NON ALCOHOLIC COMPARISON: None FINDINGS: PANCREAS: Unremarkable. LIVER: There is mild increased echogenicity in the liver consistent with fatty infiltration.. No focal hepatic lesion. No intrahepatic biliary ductal dilatation. GALLBLADDER: The gallbladder is surgically absent.. . COMMON DUCT: Not well-visualized, therefore not measured. However no biliary ductal dilatation was seen. RIGHT KIDNEY: The right kidney measures 11 cm. There is no hydronephrosis, mass, or stone. FREE FLUID: None. IMPRESSION: Gallbladder surgically absent without evidence of biliary ductal dilatation. Fatty infiltration of the liver. Reviewed, Interpreted and Dictated by Cydney Moscoso MD Transcribed by Patricia Sweeney Authenticated and [facility]
[2023-05-24 08:12] LABS: Basophils # 0.1 K/mm3 (0-0.2); Basophils % 0.9 % (0.1-2.0); Eosinophils # 0.2 K/mm3 (0.0-0.4); Eosinophils % 2.2 % (0.1-12.0); Hematocrit 44.5 % (42.0-52.0); Lymphocytes # 4.3 K/mm3 (0.7-4.5); Lymphocytes % 41.4 % (10-50); Mean Corpuscular HGB Conc 33.8 g/dL (31.8-35.4); Mean Corpuscular Hemoglobin 31.6 pg (27.0-31.2); Mean Corpuscular Volume 93.7 fl (80-94); Mean Platelet Volume 8.1 fl (7.4-10.4); Monocytes # 0.4 K/mm3 (0.1-1.0); Monocytes % 3.8 % (1.7-9.3); Neutrophils # 5.3 K/mm3 (1.8-7.8); Neutrophils % 51.7 % (37.0-80.0); Platelet Count 294 K/mm3 (142-424); Red Blood Count 4.75 M/mm3 (4.60-6.20); Red Cell Distribution Width 13.7 % (11.5-17.5); White Blood Count 10.3 K/mm3 (4.8-10.8)
[2023-05-24 08:13] LABS: Alanine Aminotransferase 26 U/L (12-78); Albumin Level 4.3 g/dl (3.5-5.0); Albumin/Globulin Ratio 1.3 (1.1-1.8); Alkaline Phosphatase 76 U/L (38-126); Anion Gap 12.3 mEq/L (5-15); Aspartate Amino Transferase 32 U/L (17-59); Bilirubin,Total 0.9 mg/dl (0.2-1.3); Blood Urea Nitrogen 13 mg/dl (9-20); Calcium 9.5 mg/dl (8.4-10.2); Carbon Dioxide 26 mmol/L (22.0-30.0); Chloride 107 mmol/L (98-107); Estimated Glomerular Filt Rate 87 ml/min (>60); GFR (African American) 105 ML/MIN (>60); Globulin 3.2 g/dL (1.3-3.2); Glucose 128 mg/dl (74-100); Potassium 4.3 mmoL/L (3.5-5.1); Sodium 141 mmol/L (136-145); Total Protein,Serum 7.5 g/dl (6.3-8.2)
[2023-05-29 10:09] LABS: Fibrosis Score 0.11; Fibrosis Stage F0- NO FIBROSIS; Steatosis Grade S2-S3; Steatosis Score 0.76
[2023-05-29 10:10] LABS: Alpha 2-Macroglobulins, Qn 108; Apolipoprotein A-1 128; Haptoglobin 148; NASH Grade N1; NASH Score 0.36
[2023-05-29 10:11] LABS: ALT (SGPT) P5P 19; AST (SGOT) P5P 16; Bilirubin, Total 0.5; GGT 31
[2023-05-29 10:12] LABS: Cholesterol, Total 205; Glucose 127; Triglycerides 288
== END 2023-05-24 23:59 ==
LOC: RAD 07:34
PROVIDERS: PCP Emergency Medicine; Visit Provider Nurse Practitioner Family
DX: K75.81 Nonalcoholic steatohepatitis (NASH) (principal); D12.6 Benign neoplasm of colon, unspecified
CPT/HCPCS: 36415; 76705; 80053; 85025

== ENCOUNTER 2024-10-24 12:55 | Outpatient (CLI) | payer BC, SELFPAY ==
--- OUTSIDE RECORDS SUMMARY | 2024-10-24 13:00 | XMS_ITS | Clinical Summary ---
Author Organization [facility] Address [address] [place] [address] Care Team Providers Care Secondary Special Education Teacher Name Role Phone Fili Cerda MD Primary Care Provider [phone] Medications No known medications Active Problems Problem Noted Date Diagnosed Date Former smoker 11/09/2022 Chronic chest pain with low to moderate risk for CAD 11/09/2022 Family history of coronary artery disease 2022 Family History Medical History Relation Name Comments Anuerysm Father Alzheimer's disease Mother Heart attack Paternal Grandfather Other Paternal Uncle 3 stents Relation Name Status Comments Brother Alive Father Mother Paternal Grandfather Paternal Uncle Alive Social History Tobacco Use Types Packs/Day Years Used Date Smoking Tobacco: Former Cigarettes Q uit: 12/25/2021 Smokeless Tobacco: Never Tobacco Cessation:Counseling Given: Not Answered Alcohol Use Standard Drinks/Week Comments Yes 2 (1 standard drink = 0.6 oz pur e alcohol) Abuse Screen Answer Date Recorded Unsafe at Home or Work/School Not on file Feels Threatened by Someone? Not on file 11/2022 Does Anyone Keep You from Co ntacting Others or Doint Things Outside the Home? Not on file 01/01/2023 Physical Sign of Abuse Present Not on file 1 Housing Stability Answer Date Recorded Current Living Arrangements Not on file 11/2022 Potentially Unsafe Housing Conditions Not on alice e 01/01/2023 Family and Community Support Answer Lokesh e Recorded Help with Day-to-Day Activities Not on file 01/01/2023 Lonely or Isolated Not on file 01/01/2023 Employment Answer Date Recorded Do you want help finding or keeping work or a jovana b? Not on file 01/01/2023 Disabilities Answer Date Recorded Concentrating, Remembering, or Making Decisions Difficulty Not on file 01/01/2023 Doing Errands Independently Difficulty Not on fi le 01/01/2023 Education Answer Date Recorded Help with school or training? Not on file Preferred Language Not on file 01/01/2023 Sex and Gender Information Value Date Recorded Sex Assigned at Not on file Legal Sex Male 11:10 AM EDT Gender Identity Not on file Sexual Orientation Not on file Last Filed Vital Signs Vital Sign Reading Time Taken Comments Blood Pressure 124/84 11/09/2022 1:28 PM EDT Pulse 81 11/09/2022 1:28 PM EDT Temperature - - Respiratory Rate - - Oxygen Saturation 96% 11/09/2022 1:28 PM EDT Inhaled Oxygen Concentration - - Weight 112 kg (246 lb) 11/09/2022 1:28 PM EDT Height 177.8 cm (5' 10 ) 11/09/2022 1:28 PM EDT Body Mass Index 35.3 11/09/2022 1:28 PM EDT Plan of Treatment Health Maintenance Due Date Last Done Comments COLOGUARD 2010 COLON CANCER SCREENING 5 YEA R SIGMOIDOSCOPY 2010 COLONOSCOPY 2010 COLORECTAL CANCER SCREENING 2010 CT COLONOGRAPHY 2010 FECAL OCCULT BLOOD TEST 2010 FIT Testing (1 year) 2010 Pneumococcal Vaccine 50+ (1 of 1 - PCV) 2015 ZOSTER VACCINE (1 of 2) 2015 TDAP/TD VACCINES (1 - Tdap) 02/19/2019 02/18/2019 ANNUAL PHYSICAL 11/03/2022 HEPATITIS C SCREENING 11/03/2022 COVID-19 Vaccine (1 - season) 2023 INFLUENZA VACCINE 12/24/2024 12/19/2016, 01/03/2016 Insurance [facility] PPO Care Teams Secondary Special Education Teacher Relationship Specialty Start Date End Date Fili Cerda MD [address] [place] [address] PCP - General 02/01/15
--- OUTSIDE RECORDS SUMMARY | 2024-10-24 13:00 | XMS_ITS | Clinical Summary ---
Author Organization [facility] Address [address] [place] [address] Care Team Providers Care Truck Body Builder Apprentice Name Role Phone Fili Cerda MD Primary Care Provider [phone] Family History Medical History Relation Name Comments Conversions - Other Mother Back pro blem Relation Name Status Comments Mother Social History Tobacco Use Types Packs/Day Years Used Date Smoking Tobacco: Former Sex and Gender Information Value Date Recorded Sex Assigned at Not on file Legal Sex Male 7:16 PM EDT Gender Identity Not on file Sexual Orientation Not on file Last Filed Vital Signs Vital Sign Reading Time Taken Comments Blood Pressure - - Pulse - - Temperature - - Respiratory Rate - - Oxygen Saturation - - Inhaled Oxygen Concentration - - Weight 107 kg (235 lb 0.2 oz) 07/01/2015 2:01 PM EDT Height 175.3 cm (5' 9 ) 07/01/2015 2:01 PM EDT Body Mass Index 34.71 07/01/2015 2:01 PM EDT Plan of Treatment Health Maintenance Due Date Last Done Comments [facility]-Depression Screening 1965 [facility]-/Child/Adol SDOH Screenings 1965 [facility]- SDOH Screenings 1983 [facility]-Adult SDOH Screenings 1983 [facility]-DTaP,Tdap,and Td Vaccine s (1 - Tdap) 02/05/1984 [facility]-Hepatitis B Vaccines (1 of 3 - 19+ 3-dose series) 02/05/1984 CT Colonography 2010 Colonoscopy 2010 FIT-DNA 2010 FIT 2010 FOBT 2010 Sigmoidoscopy 2010 [facility]-Colorectal Cancer Screening 2010 [facility]-Pneumococcal Vaccine: 50 + Years (1 of 1 - PCV) 2015 [facility]-Zoster Vaccines (1 of 2) 2015 [id number] Vaccine (1 - 20 24-25 season) 2023 [facility]-Influenza Vaccine (#1) 2024 HPV Vaccines Aged Out No longer eligi ble based on patient's age to complete this topic [facility]-HIB Vaccines Aged Out No longer e ligible based on patient's age to complete this topic [facility]-Hepatitis A Vaccines Aged Out No longer eligible based on patient's age to complete this topic [facility]-IPV Vaccines Aged Out No longer e ligible based on patient's age to complete this topic [facility]-Rotavirus Vaccines Aged Out No lo nger eligible based on patient's age to complete this topic Care Teams Truck Body Builder Apprentice Relationship Specialty Start Date End Date Fili Cerda MD [address] [place] [address] PCP - General 08/06/20
--- OUTSIDE RECORDS SUMMARY | 2024-10-24 13:00 | XMS_ITS | Clinical Summary ---
Author Organization [facility] Address [address] [place] [address] Phone [email or web address] Care Team Providers Care Bit Sander Name Role Phone Fili Cerda MD Primary Care Provider [phone] Allergies No known active allergies Medications No known medications Active Problems Problem Noted Date Diagnosed Date Tobacco use disorder 02/10/2010 Overview (08/22/2017): Resolved Problems Problem Noted Date Diagnosed Date Resolved Date Acute sinusitis 03/08/2011 05/13/2019 Overview (08/22/2017): Acute conjunctivitis 11/15/2009 020 Overview (08/22/2017): Sprain of back 01/07/2009 05/13/2019 Overview (08/22/2017): Routine general medical exam ination at a health care facility 01/28/2008 05/13/2019 Overview (08/22/2017): Other examination of ears and hearing 03/11/2007 05/13/2019 Overview (08/22/2017): Social History Tobacco Use Types Packs/Day Years Used Date Smoking Tobacco: Never Smokeless Tobacco: Never Alcohol Use Standard Drinks/Week Comments Never 0 (1 standard drink = 0.6 oz pur e alcohol) Intimate Partner Violence Answer Date R ecorded Insults You Not on file 07/07/2020 Threatens You Not on file 07/07/2020 Screams at You Not on file 07/07/2020 Physically Hurt Not on file 07/07/2020 Intimate Partner Violence Score Not on file 07/07/2020 Depression Answer Date Recorded PHQ-9 Total Score 0 06/10/2019 Stress Answer Date Recorded Stress in your Life Not on file 01/28/2024 Dealing with Stress 3 01/28/2024 Sex and Gender Information Value Date Recorded Sex Assigned at Not on file Legal Sex Male 9:26 AM CDT Gender Identity Not on file Sexual Orientation Not on file Last Filed Vital Signs Vital Sign Reading Time Taken Comments Blood Pressure 126/82 06/10/2019 7:34 AM EDT Pulse 72 06/10/2019 7:34 AM EDT Temperature 36.9 C (98.5 F) 06/10/2019 7:34 AM EDT Respiratory Rate 14 06/03/2019 9:53 AM EDT Oxygen Saturation 99% 06/10/2019 7:34 AM EDT Inhaled Oxygen Concentration - - Weight 102 kg (225 lb) 06/03/2019 9:53 AM EDT Height 177.8 cm (5' 10 ) 06/03/2019 9:53 AM EDT Body Mass Index 32.28 06/03/2019 9:53 AM EDT Plan of Treatment Health Maintenance Due Date Last Done Comments Dental Cleaning/Exam 1965 HIV Screening 1965 Hepatitis C Screening 1965 Hep B Infection Screening - Triple Screen 1983 Hepatitis B Immunization (1 of 3 - 19+ 3-dose series) 02/05/1984 Tetanus Diphtheria and Pertu ssis Immunization (1 - Tdap) 02/05/1984 Colorectal Cancer Screening 1995 Zoster Immunization (1 of 2) 2015 Annual Preventive Exam 05/13/2020 05/13/2019 Covid-19 Immunization (1 - 2 25 season) 2023 Influenza Immunization (#1) 2024 HIB Immunization Aged Out No longer e ligible based on patient's age to complete this topic HPV Immunization Aged Out No longer e ligible based on patient's age to complete this topic Hepatitis A Immunization Aged Out No longer eligible based on patient's age to complete this topic Pneumococcal: Ped (0 to 5 Yr s) and At-Risk Member (6 to 64 Yrs) Aged Out No longer e ligible based on patient's age to complete this topic Polio Immunization Aged Out No longer eligible based on patient's age to complete this topic Insurance Care Teams Bit Sander Relationship Specialty Start Date End Date Fili Cerda MD [address] [place] [address] PCP - General Family Medicine 06/03/19
[2024-10-24 13:10] LABS: Microscopic, Urine URINE MICROSCOPIC (MICROSCOPIC)
[2024-10-24 13:24] LABS: Hematocrit 41.1 % (42.0-52.0); Hemoglobin 13.8 g/dL (14.1-18.0); Immature Granulocytes % 0.4 %; Mean Corpuscular HGB Conc 33.6 g/dL (31.8-35.4); Mean Corpuscular Hemoglobin 29.7 pg (27.0-31.2); Mean Corpuscular Volume 88.6 fl (80-94); Nucleated Red Blood Cells % 0 %; Platelet Count 246 K/mm3 (142-424); Red Blood Count 4.64 M/mm3 (4.60-6.20); Red Cell Distribution Width-SD 41.1 fL; White Blood Count 9.3 K/mm3 (4.8-10.8)
[2024-10-24 13:29] LABS: Bilirubin,Urine Negative (Negative); Color,Urine YELLOW (Yellow); Glucose,Urine (UA) Negative (Negative); Ketones,Urine Negative (Negative); Leukocyte Esterase,Urine Negative (Negative); PH,Urine 6.0 (5.0-8.5); Protein,Urine Negative (Negative); Specific Gravity, Urine 1.025 (1.005-1.030); Urobilinogen,Urine 0.2 EU/dl (0.2)
[2024-10-24 13:39] LABS: Bacteria,Urine Trace /lpf; Mucus,Urine Trace /lpf; Squamous Epithelial Cell,Urine Occasional #/hpf (0-5); WBC,Urine Occasional #/hpf (0-3)
[2024-10-24 14:09] LABS: Free T4 (Free Thyroxine) 1.04 ng/dl (0.78-2.19)
[2024-10-24 15:04] LABS: Alanine Aminotransferase 24 U/L (12-78); Albumin Level 4.3 g/dl (3.5-5.0); Albumin/Globulin Ratio 1.7 (1.1-1.8); Alkaline Phosphatase 78 U/L (38-126); Anion Gap 13.4 mEq/L (5-15); Aspartate Amino Transferase 26 U/L (17-59); Bilirubin,Total 0.7 mg/dl (0.2-1.3); Blood Urea Nitrogen 17 mg/dl (9-20); Calcium 10.1 mg/dl (8.4-10.2); Carbon Dioxide 26 mmol/L (22.0-30.0); Chloride 105 mmol/L (98-107); Cholesterol 221 mg/dl (140-200); Creatinine,Serum 0.80 mg/dl (0.66-1.25); Estimated Glomerular Filt Rate 99 ml/min (>60); GFR (African American) 120 ML/MIN (>60); Globulin 2.6 g/dL (1.3-3.2); Glucose 114 mg/dl (74-100); HDL Cholesterol 37 mg/dl (40-60); Potassium 4.4 mmoL/L (3.5-5.1); Sodium 140 mmol/L (136-145); Total Protein,Serum 6.9 g/dl (6.3-8.2); Triglycerides 232 mg/dl (30-150)
[2024-10-24 15:24] LABS: Hemoglobin A1C 5.7 % (4.0-6.0)
[2024-10-24 16:19] LABS: Thyroid Stimulating Hormone 1.21 uIU/mL (0.465-4.68)
== END 2024-10-24 23:59 | disposition home or self-care (01) ==
LOC: LAB 12:57
PROVIDERS: PCP Emergency Medicine; Visit Provider Emergency Medicine
DX: E78.5 Hyperlipidemia, unspecified (principal); E66.9 Obesity, unspecified; F32.A Depression, unspecified; K75.81 Nonalcoholic steatohepatitis (NASH)
CPT/HCPCS: 36415; 80053; 80061; 80074; 81001; 83036; 84439; 84443; 85025; 85651; G0103

== ENCOUNTER 2024-10-27 10:47 | Outpatient (CLI) | payer BC, SELFPAY ==
--- OUTSIDE RECORDS SUMMARY | 2024-10-27 10:50 | XMS_ITS | Clinical Summary ---
Author Organization [facility] Address [address] [place] [address] Care Team Providers Care Grooving Lathe Tender Name Role Phone Fili Cerda MD Primary Care Provider [phone] Medications No known medications Active Problems Problem [...] 2023 INFLUENZA VACCINE 12/24/2024 12/19/2016, 01/03/2016 Insurance [facility] PPO Care Teams Grooving Lathe Tender Relationship Specialty Start Date End Date Fili Cerda MD [address] [place] [address] PCP - General 02/01/15
--- OUTSIDE RECORDS SUMMARY | 2024-10-27 10:50 | XMS_ITS | Clinical Summary ---
Author Organization [facility] Address [address] [place] [address] Phone [email or web address] Care Team Providers Care Coordinating Producer Name Role Phone Fili Cerda MD Primary Care Provider [phone] Allergies No known active allergies Medications No [...] Health Maintenance Due Date Last Done Comments CT Colonography 1965 Colonoscopy 1965 Colorectal Cancer Screening Combo 1965 DNA Cologuard 1965 Dental Cleaning/Exam 1965 FIT or FOBT Test 1965 HIV Screening 1965 Hepatitis C Screening 1965 Sigmoidoscopy 1965 Hep B Infection Screening - Triple Screen 1983 Hepatitis B Immunization (1 of 3 - 19+ 3-dose series) 02/05/1984 Tetanus Diphtheria and Pertu ssis Immunization (1 - Tdap) 02/05/1984 Zoster Immunization (1 of 2) 2015 Annual Preventive Exam 05/13/2020 05/13/2019 Covid-19 Immunization (1 - 2 02425 season) 2023 Influenza Immunization (#1) 2024 HIB [...] patient's age to complete this topic Insurance [employer] 5 [id number] [place] [address] Care Teams Coordinating Producer Relationship Specialty Start Date End Date Fili Cerda MD [address] [place] [address] PCP - General Family Medicine 06/03/19
--- OUTSIDE RECORDS SUMMARY | 2024-10-27 10:50 | XMS_ITS | Clinical Summary ---
Author Organization [facility] Address [address] [place] [address] Care Team Providers Care Hand Iii Cutter Name Role Phone Fili Cerda MD Primary Care Provider [phone] Family History Medical History Relation Name Comments [...] 2015 [facility]-Zoster Vaccines (1 of 2) 2015 [id number] Vaccine (1 - 20 24-25 season) 2023 [...] age to complete this topic Care Teams Hand Iii Cutter Relationship Specialty Start Date End Date Fili Cerda MD [address] [place] [address] PCP - General 08/06/20
[2024-10-27 11:58] LABS: C-Reactive Protein 7.8 mg/L (0-4)
[2024-10-29 15:11] LABS: Antinuclear Antibodies, IFA Positive (.)
== END 2024-10-27 23:59 | disposition home or self-care (01) ==
LOC: LAB 10:48
PROVIDERS: PCP Emergency Medicine; Visit Provider Emergency Medicine
DX: M04.9 Autoinflammatory syndrome, unspecified (principal)
CPT/HCPCS: 36415; 86038; 86140

== ENCOUNTER 2024-12-13 09:33 | Emergency (ER) | payer BC, SELFPAY ==
--- NOTE | 2024-12-13 09:36 | HMH.EDGENADL ---
Discharge Plan Disposition Patient Disposition: Home, Self-Care Prescriptions Prescriptions: No Action hydrocodone-acetaminophen 1 EACH tablet 1 tab PO TID PRN (Reason: Severe Pain) Qty: 12 0RF ketorolac 10 MG tablet 10 mg PO Q6HP MDD 40mg/day PRN (Reason: Moderate Pain) Qty: 16 0RF Rx Instructions: Therapy initiated with IV/IM dose tamsulosin 0.4 MG capsule 0.4 mg PO HS Qty: 30 0RF ondansetron 4 MG tablet,disintegrating 4 mg PO TIDP PRN (Reason: Nausea) Qty: 10 0RF benzonatate [benzonatate] 100 mg capsule 100 mg PO TIDP PRN (Reason: Cough) Qty: 30 0RF ondansetron 4 mg Tablet,Disintegrating 4 mg PO Q8H PRN (Reason: Nausea) Qty: 12 0RF multivitamin 1 EACH tablet 1 each PO DAILY phenazopyridine 200 MG tablet 200 pow PO TID Qty: 6 0RF tamsulosin 0.4 MG capsule 0.4 mg PO HS Qty: 30 0RF Referrals Follow up/Referrals: Fili Cerda MD [Primary Care Provider, [facility]] - See instructions Activity Restrictions/Add. Instructions Additional Instructions/Restrictions: Continue ofloxacin drops as previously prescribed. Follow-up with primary care doctor. Please return to the ER with any new, Worsening Symptoms Clinical Impressions Clinical Impression: Foreign body in right ear Qualifiers: Encounter type: initial encounter Qualified Code(s): T16.1XXA - Foreign body in right ear, initial encounter Print Language Print Language: Argentine Discharge ED Provider: Matthew Flores General Adult HPI General Chief complaint: Ear Stated complaint: foreign object R ear Time Seen by Provider: 12/13/24 09:36 Mode of Arrival: Ambulatory Source of Information: Patient Limitations: No Limitations History of Present Illness HPI narrative: This is a 59-year-old male who presents with concern for foreign body in his right ear. States that he was cleaning his right ear out with a Q-tip whenever the cotton tip broke off and became lodged in his right ear. States that he has decreased hearing out of this ear currently. States that he was recently prescribed ofloxacin drops due to recurrent ear infections in that right ear. He just started them yesterday. Related Data Home Medications ?Medication ?Instructions ?Recorded ?Confirmed multivitamin 1 each PO DAILY HEALTH MAINTENANCE 02/18/19 02/18/19 Previous Rx's ?Medication ?Instructions ?Recorded hydrocodone 5 mg-acetaminophen 325 1 tab PO TID PRN Severe Pain #12 10/28/20 mg tablet tabs ketorolac 10 mg tablet 10 mg PO Q6HP PRN Moderate Pain 10/28/20 #16 tabs ondansetron 4 mg disintegrating 4 mg PO TIDP PRN Nausea #10 tabs 10/28/20 tablet tamsulosin 0.4 mg capsule 0.4 mg PO HS #30 caps 10/28/20 phenazopyridine 200 mg tablet 200 pow PO TID #6 tabs 07/23/21 tamsulosin 0.4 mg capsule 0.4 mg PO HS #30 caps 07/23/21 benzonatate 100 mg capsule 100 mg PO TIDP PRN Cough #30 caps 03/20/23 ondansetron 4 mg disintegrating 4 mg PO Q8H PRN Nausea #12 tabs 03/20/23 tablet Allergies Allergy/AdvReac Type Severity Reaction Status Date / Time No Known Allergies Allergy Verified 07/09/22 18:18 [facility] Disclaimer: The information contained in this section may have been updated after the patient was seen, as this information can be updated by other users. Social History Smoking Status: Never smoker alcohol intake: never substance use type: denies use current occupational status: employed Travel in the last 8 weeks?: None household members: family housing: house Have you lived/traveled outside [place] in past 30 days?: No Contact w/someone who lives/traveled outside US past 30 days?: No Exposure to someone with infectious disease in past 14 days?: No Do you have a fever (greater than 100.4 F or 38 C)?: No Have you tested positive for COVID-19?: No Exposed to someone with COVID-19 in past 14 days?: No Do you have a sore throat?: No Do you have a cough?: No Do you have any weakness?: No Do you have any diarrhea?: No Are you experiencing any unusual bleeding?: No Do you have any muscle aches/pain?: No Do you have any abdominal pain?: No Are you experiencing loss of taste or smell?: No Other Medical History Have you received the Flu Vaccine for this season: No Have you received the Pneumonia Vaccine: No ROS Obtained: Yes All systems reviewed & no additional complaints except as documented Physical Exam General General appearance: alert and in no apparent distress Head Head exam: atraumatic Eye Eye exam: Present normal appearance, PERRL and EOMI ENT ENT exam: Present other (Right ear: Cotton swab present in external auditory canal.) Neck Neck exam: Present normal inspection and full ROM Chest Chest inspection: Present symmetric chest wall rise Respiratory Respiratory exam: Present normal lung sounds bilaterally; Absent respiratory distress Cardiovascular Cardiovascular exam: Present regular rate and normal rhythm Abdominal Exam Abdominal exam: Present soft; Absent distention Extremities Exam Extremities exam: Present normal inspection Neurological Exam Neurological exam: Present alert and oriented X3 Psychiatric Psychiatric exam: Present normal affect and normal mood Skin Skin exam: Present warm and dry Medical Decision Making Medical Records Medical records reviewed: Yes I reviewed the patient's medical records. Screening: Per USPSTF and CDC recommendations, given the prevalence of disease in our region, it is our hospital?s policy to screen for HIV and viral Hepatitis for all patients aged 18 and over and those with ongoing risk factors. [place] Inquiry Pt receiving controlled substance: No Vital Signs: 12/13/24 09:45 Temperature 98.2 F Temperature Source Oral Pulse Rate [Left] 71 Respiratory Rate 15 Blood Pressure [Right Arm] 175/107 H Blood Pressure Mean [Right Arm] 129 02 Sat by Pulse Oximetry 97 Oxygen Delivery Method Room Air Medical Decision Narrative: In summary, this 59-year-old male presents to the emergency department today with concern for foreign body in right ear. On initial evaluation patient has cotton swab stuck in his right external auditory canal. Differential diagnosis includes but is not limited to foreign body, tympanic membrane perforation, otitis externa. Foreign body was removed on arrival. Uncomplicated. Patient did have a slight tinge of blood on the cotton swab that was present after it was removed. I reexamined his ear and he had no active bleeding. Tympanic membrane was intact. He reported significant improvement in hearing and no pain. He was recently prescribed ofloxacin drops for otitis externa by his PCP. He was instructed to continue these and follow-up outpatient. Ultimately discharged in stable condition Procedures FB Removal Ear Location: ear canal (R) Foreign Body Suspected: other (Cotton swab) TM intact pre-procedure: unable to visualize Foreign Body Removed: yes Foreign Body Removal Technique: forceps Tympanic Membrane Intact Post Procedure: Yes Patient Tolerated Procedure: well Complications: none Critical Care Critical Care Time Critical Care Time: No
--- OUTSIDE RECORDS SUMMARY | 2024-12-13 09:40 | XMS_ITS | Clinical Summary ---
Author Organization [facility] Address [address] [place] [address] Care Team Providers Care Marine Engine Driver Name Role Phone Fili Cerda MD Primary Care Provider [phone] Medications No known medications Active Problems Problem [...] ANNUAL PHYSICAL 11/03/2022 HEPATITIS C SCREENING 11/03/2022 INFLUENZA VACCINE 10/24/2024 12/19/2016, 01/03/2016 Insurance [facility] P[facility] Care Teams Marine Engine Driver Relationship Specialty Start Date End Date iFli Cerda MD [address] [id number] PCP - General 02/01/15
--- OUTSIDE RECORDS SUMMARY | 2024-12-13 09:40 | XMS_ITS | Clinical Summary ---
Author Organization Healthcare Address [address] [place] [address] Care Team Providers Care Regulatory Technician Name Role Phone Fili Cerda MD Primary Care Provider [phone] Family History Medical History Relation Name Comments [...] 2015 [facility]-Zoster Vaccines (1 of 2) 2015 [id number] Vaccine (1 - 20 24-25 season) 2024 [facility]-Influenza Vaccine (#1) 2024 HPV Vaccines Aged [...] age to complete this topic Care Teams Regulatory Technician Relationship Specialty Start Date End Date Fili Cerda MD [address] [place] [address] PCP - General 08/06/20
--- OUTSIDE RECORDS SUMMARY | 2024-12-13 09:40 | XMS_ITS | Clinical Summary ---
Author Organization [facility] Address [address] [place] [address] Phone [email or web address] Care Team Providers Care Endless Track Vehicle Mechanic Name Role Phone Fili Cerda MD Primary Care Provider [phone] Allergies No known active allergies Medications No [...] Covid-19 Immunization (1 - 2 02425 season) 2024 Influenza Immunization (#1) 2024 HIB Immunization Aged [...] Insurance [employer] 5 [id number] [place] [address] Care Teams Endless Track Vehicle Mechanic Relationship Specialty Start Date End Date iFli Cerda MD [address] [place] [address] PCP - General Family Medicine 06/03/19
[2024-12-13 09:45] VITALS: BP 175/107; PULSE 71; RESP 15; TEMP 36.8; O2SAT 97; BMI 32.5
[2024-12-13 09:51] VITALS: BP 168/91; PULSE 72; RESP 16; TEMP 36.8; O2SAT 99
== END 2024-12-13 09:54 | disposition home or self-care (01) ==
PROVIDERS: Emergency Provider Student in an Organized Health Care Education/Training Program; PCP Emergency Medicine
DX: T16.1XXA Foreign body in right ear, initial encounter (principal)
CPT/HCPCS: 69200; 99282